=== PATIENT | male | born 1950 | race Caucasian/White ===

== ENCOUNTER 2019-01-08 05:30 | Day surgery (SDC) | payer MEDICARE, OTHER ==
[~2019-01-08] VITALS: Ht 182.9 cm; Wt 127.0 kg
[~2019-01-08 05:30] MED LIST: GLUCOPHAGE1000 MG PO; LIPITOR40 MG PO; LOSARTAN-HCTZ1 EAC1 PO
[2019-01-08] MEDS ORDERED: CELECOXIB200 MG PO (07:39)
[2019-01-08] MEDS ORDERED: HYDROCODON-ACE1 EA11 PO (07:39)
--- NOTE | 2019-01-08 07:46 | NUR ---
01/08/19 0746 Sheets,Viridiana 0712 PT ARRIVED TO PACU ON 6L VIA MASK, ORAL AIRWAY IN PLACE. RESP EVEN AND UNLABORED, RESP RATE 8-10.
--- NOTE | 2019-01-08 10:08 | NUR ---
PT RESTING IN BED-ALERT, ORIENTED AND SUPPORTED BY HIS . PT VERY MATTER OF FACT, DR KU IN AND PT'S FOCUS WITH HIM. WILL FOLLOW NEEDED
--- NOTE | 2019-01-08 19:18 | OR ---
[facility] [address], [place] [address] Signed DATE OF OPERATION: 01/08/2019 SURGEON: Cristy Sandhu MD PREOPERATIVE DIAGNOSIS: Medial meniscus tear, left knee. POSTOPERATIVE DIAGNOSIS: Medial meniscus tear, left knee. PROCEDURE PERFORMED: Left knee arthroscopy with partial medial meniscectomy. ANESTHESIA: General. ASSISTANTS: 1. Fely Rhoades PA-C. 2. RADHA Arreola. BLOOD LOSS: Minimal. BRIEF HISTORY: Roge is a 68-year-old gentleman with painful mechanical symptoms in his knee. Risks and benefits of operative treatment were discussed with him. He elected to proceed. Once consent was obtained, he was taken to the operating room. After adequate anesthesia, he was placed on operating room table. All downside pressure points were well padded. The right leg was flexed, abducted, and externally rotated on a well-padded leg cuoghlin. Left knee was placed in well-padded leg coughlin with no tourniquet. The portal sites were pre-injected using 0.25% Marcaine with epinephrine under alcohol prep. The leg was then prepped and draped in a standard sterile fashion. Standard inferolateral and superolateral portals were made. The scope was introduced in the knee. ARTHROSCOPIC FINDINGS: The knee showed a [id number] synovitis. 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 Medial and lateral gutters were clear. ACL was noted to be fairly incompetent and partially torn. 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 No tear in the meniscus. The medial compartment showed an intrasubstance tear at the posteromedial corner extending Electronically Signed By: CRISTY SANDHU MD 01/08/19 1918 PATIENT NAME: ROGE TABARES OPERATIVE REPORT DATE OF : 52 REPORT #: [id number] PHYSICIAN: CRISTY SANDHU MD PCP: JOHN MCGREGOR MD REPORT IS CONFIDENTIAL AND NOT TO BE RELEASED WITHOUT AUTHORIZATION [facility] [address], [place] [address] Signed anteriorly about 1 cm. There was grade 2 chondromalacia to the femoral side, grade 1 to the tibial side. DESCRIPTION OF OPERATION: Standard inferomedial portal was made and the straight and curved biters were used to trim the meniscus tear back to a stable rim. This was smoothed using the shaver and all debris was evacuated. The scope was withdrawn. Portals were closed with 3-0 nylon, dressed with Adaptic, ABD, and Justin wrap. He tolerated the procedure well. All sponge, needle, and instrument counts were correct. Cristy Sandhu MD BA/KATE /[id number] Copies: ~ Electronically Signed By: CRISTY SANDHU MD 01/08/19 1918 PATIENT NAME: ROGE TABARES OPERATIVE REPORT DATE OF : 52 REPORT #: [id number] PHYSICIAN: CRISTY SANDHU MD PCP: JOHN MCGREGOR MD REPORT IS CONFIDENTIAL AND NOT TO BE RELEASED WITHOUT AUTHORIZATION
== END 2019-01-08 10:05 | disposition home or self-care (01) ==
LOC: DS 05:30 → OPS 05:30 → DS 06:45 → OPS 10:05
PROVIDERS: Specialist
PROC: 0SBD4ZZ Excision of Left Knee Joint, Percutaneous Endoscopic Approach (ICD-10-PCS; principal; 2019-01-08 06:45)
DX: S83.242A Other tear of medial meniscus, current injury, left knee, initial encounter (principal); M94.262 Chondromalacia, left knee; I10 Essential (primary) hypertension; E11.9 Type 2 diabetes mellitus without complications; E66.9 Obesity, unspecified; Z87.891 Personal history of nicotine dependence; Z79.899 Other long term (current) drug therapy; Z79.84 Long term (current) use of oral hypoglycemic drugs; Z68.37 Body mass index [BMI] 37.0-37.9, adult
CPT/HCPCS: 01400; J0690; J1100; J1885; J2405; J2704; J3010; J7120